=== PATIENT | female | born 1935 | race Caucasian/White ===

== ENCOUNTER 2017-07-29 19:34 | Emergency (ER) | payer OTHER ==
[2017-07-29 19:48] VITALS: RESP 16; TEMP 97.7; O2SAT 96
--- NOTE | 2017-07-29 19:55 | EDPHY ---
H & P Stated Complaint: L HIP PAIN Time Seen by Provider: 07/29/17 19:44 HPI/ROS: CHIEF COMPLAINT: Left hip pain HISTORY OF PRESENT ILLNESS: The patient is a 82-year-old female who fell at the top of the stairs on Friday evening. She landed on her left hip. She was able to walk down the stairs and get her shoe. She is able to walk the rest of that evening and the next day without any difficulty but then Friday had severe pain in her left hip and could not get out of bed. Friday and Friday she was feeling somewhat better but had to sit in the office chair and roll around the house because she could not tolerate bearing weight on her left leg. She has significant pain in her gluteus region with weight-bearing. She also has occasional radiation of the pain down to her knee and lateral aspect of her lower leg. No weakness numbness or paralysis. No bruising or discoloration. REVIEW OF SYSTEMS: Constitutional: denies: chills, fever, recent illness, recent injury EENTM: denies: blurred vision, double vision, nose congestion Respiratory: denies: cough, shortness of breath Cardiac: denies: chest pain, irregular heart rate, lightheadedness, palpitations Gastrointestinal/Abdominal: denies: abdominal pain, diarrhea, nausea, vomiting, blood streaked stools Genitourinary: denies: dysuria, frequency, hematuria, pain Musculoskeletal: See HPI Skin: denies: lesions, rash, jaundice, bruising Neurological: denies: headache, numbness, paresthesia, tingling, dizziness, weakness Hematologic/Lymphatic: denies: blood clots, easy bleeding, easy bruising Immunologic/allergic: denies: HIV/AIDS, transplant EXAM: GENERAL: Well-appearing, well-nourished and in no acute distress. HEAD: Atraumatic, normocephalic. EYES: Pupils equal round and reactive to light, extraocular movements intact, sclera anicteric, conjunctiva are normal. ENT: TMs normal, nares patent, oropharynx clear without exudates. Moist mucous membranes. NECK: Normal range of motion, supple without lymphadenopathy or JVD. LUNGS: Breath sounds clear to auscultation bilaterally and equal. No wheezes rales or rhonchi. HEART: Regular rate and rhythm without murmurs, rubs or gallops. ABDOMEN: Soft, nontender, normoactive bowel sounds. No guarding, no rebound. No masses appreciated. BACK: No CVA tenderness, no spinal tenderness, step-offs or deformities EXTREMITIES: No tenderness, pain with weight-bearing on left leg, location of pain is in her left gluteus region. No pain in her and spine are low back or coccyx. No pain with range of motion of the hip. Normal pulses and sensation distally. NEUROLOGICAL: Cranial nerves II through XII grossly intact. Normal speech, normal gait. 5/5 strength, normal movement in all extremities, normal sensation PSYCH: Normal mood, normal affect. SKIN: Warm, dry, normal turgor, no visible rashes or lesions. Source: Patient Exam Limitations: No limitations - Personal History Current Tetanus/Diphtheria Vaccine: Unsure Current Tetanus Diphtheria and Acellular Pertussis (TDAP): Unsure - Medical/Surgical History Hx Asthma: No Hx Chronic Respiratory Disease: No Hx Diabetes: No Hx Cardiac Disease: No Hx Renal Disease: No Hx Cirrhosis: No Hx Alcoholism: No Hx HIV/AIDS: No Hx Splenectomy or Spleen Trauma: No Other PMH: Allergic rhinorrhea, otherwise denies. Had right hip surgery following trauma. L ANKLE SX/S/P FALL - Family History Significant Family History: No pertinent family hx - Social History Smoking Status: Former smoker Alcohol Use: Sober Drug Use: None Constitutional: Initial Vital Signs Temperature (C) 36.5 C 07/29/17 19:46 Heart Rate 79 07/29/17 19:46 Respiratory Rate 16 07/29/17 19:46 Blood Pressure 154/104 H 07/29/17 19:46 O2 Sat (%) 96 07/29/17 19:46 O2 Delivery Mode Room Air Allergies/Adverse Reactions: No Known Allergies Allergy (Verified 07/29/17 21:20) Medical Decision Making - Diagnostics Imaging Results: Imaging Impressions Hip X-Ray 07/29/17 19:52 Impression: 1. Small avulsion from the superior surface of the left greater trochanter, age indeterminate. 2. Posttraumatic deformity of the left parasymphyseal pubic bone. 3. Prior ORIF proximal right femoral fracture. Imaging: Discussed imaging studies w/ trench digger helper Radiologist ED Course/Re-evaluation: We discussed the fracture seen on x-ray. I discussed the case with Dr. Sy's PA who agrees that this fits the clinical picture. She suggests rest and mobility as tolerated and follow up with Dr. Sy early next week. The patient and her daughter agree with this plan. We discussed indications for returning. I discussed the case with Dr. Holly. The humerus avulsion fracture is insertion site for the gluteus muscles which makes sense why her gluteus hurting. Differential Diagnosis: Partial list of the Differential diagnosis considered include but were not limited to; contusion, pelvic fracture, hip fracture and although unlikely based on the history and physical exam, I also considered dislocation, vascular injury, nerve injury, low back injury. I discussed these differential diagnoses and the plan with the patient as well as the usual and expected course. The patient understands that the diagnosis is provisional and that in medicine we are not always correct and that further workup is often warranted. Usual and customary warnings were given. All of the patient's questions were answered. The patient was instructed to return to the emergency department should the symptoms at all worsen or return, otherwise to followup with the physician as we discussed. Departure - Departure Disposition: Home, Routine, Self-Care Clinical Impression: Fracture of pubic ramus Qualifiers: Encounter type: initial encounter Fracture type: closed Laterality: left Qualified Code(s): S32.592A - Other specified fracture of left pubis, initial encounter for closed fracture Fracture of greater trochanter of left femur Qualifiers: Encounter type: initial encounter Fracture type: closed Fracture alignment: nondisplaced Qualified Code(s): S72.115A - Nondisplaced fracture of greater trochanter of left femur, initial encounter for closed fracture Condition: Good Instructions: Avulsion Fracture (ED) Referrals: Regi Skelton MD [Primary Care Provider] - As per Instructions Wellington Sy MD [Medical Doctor] - As per Instructions
[2017-07-29 21:15] VITALS: BP 135/62; PULSE 81
== END 2017-07-29 21:00 | disposition home or self-care (01) ==
LOC: CED 19:34
DX: S72.115A Nondisplaced fracture of greater trochanter of left femur, initial encounter for closed fracture (principal); S32.592A Other specified fracture of left pubis, initial encounter for closed fracture; Z87.891 Personal history of nicotine dependence; W10.8XXA Fall (on) (from) other stairs and steps, initial encounter
CPT/HCPCS: 73502-PO

== ENCOUNTER 2018-07-21 08:52 | Emergency (ER) | payer OTHER ==
--- NOTE | 2018-07-21 09:56 | EDPHY ---
H & P Stated Complaint: 18 Time Seen by Provider: 07/21/18 09:14 HPI/ROS: Chief Complaint: Back pain HPI: 82-year-old woman been having worsening back pain over the last 6 days after having a mechanical slip and fall in the shower. Patient states she lost her footing slid down on for buttocks 6 days ago. She did not hit her head. No loss of conscious. She has been having mid to lower back pain since that time. He has been getting progressively worse over the last week. She has been taking ibuprofen 400 mg twice a day with some relief but the pain comes back. She has not been taking any medications. No new numbness or weakness. She has been ambulating with some discomfort. She has a walker but has not been using it. No urinary urgency or frequency. No fevers or chills. No chest pain. No nausea or vomiting. ROS: 10 systems were reviewed and were negative except those elements noted in the HPI. PMH: Denies Social History: No smoking, no alcohol, no recreational drug use Family History: non-contributory Physical Exam: Gen: Awake, Alert, No Distress HEENT: Nose: no rhinorrhea Eyes: PERRLA, EOMI Mouth: Moist mucosa Neck: Supple, no JVD Chest: nontender, lungs clear to auscultation Heart: S1, S2 normal, no murmur Abd: Soft, non-tender, no guarding Back: no CVA tenderness, she has tenderness in the lower thoracic and upper lumbar region. No step-offs. No bilateral paraspinal tenderness. Ext: no edema, non-tender Skin: no rash Neuro: CN II-XII intact, Sensation grossly intact, Strength 5/5 in bilateral upper and lower extremities, normal deep tendon reflexes. Normal dorsiflexion and plantar flexion. Sensations intact. - Personal History Current Tetanus Diphtheria and Acellular Pertussis (TDAP): Yes - Medical/Surgical History Hx Asthma: No Hx Chronic Respiratory Disease: No Hx Diabetes: No Hx Cardiac Disease: No Hx Renal Disease: No Hx Cirrhosis: No Hx Alcoholism: No Hx HIV/AIDS: No Hx Splenectomy or Spleen Trauma: No Other PMH: Allergic rhinorrhea, otherwise denies. Had right hip surgery following trauma. L ANKLE SX/S/P FALL - Social History Smoking Status: Former smoker Constitutional: Initial Vital Signs Temperature (C) 36.4 C 07/21/18 09:18 Heart Rate 72 07/21/18 09:18 Respiratory Rate 18 07/21/18 09:18 Blood Pressure 172/88 H 07/21/18 09:18 O2 Sat (%) 96 07/21/18 09:18 O2 Delivery Mode Room Air Allergies/Adverse Reactions: No Known Allergies Allergy (Verified 07/21/18 09:14) Home Medications: Medication Instructions Recorded Cephalexin [Keflex (*)] 500 mg PO Q6H #20 cap 07/21/18 Medical Decision Making - Diagnostics Imaging Results: Imaging Impressions Lumbar Spine X-Ray 07/21/18 09:38 Impression: Osteoporosis with mild T11 and T12 compressions of unknown age. If it is clinically important to first line production supervisor the age of these fractures, then recommend MRI without contrast to look for bone marrow edema. This may be important if the patient is a candidate for kyphoplasty. If the patient is a candidate for kyphoplasty, then recommend consultation with interventional radiology. This patient also benefit from a DEXA scan and bone building pharmacologic intervention. 2. Lumbar Spine, 3 views History: Pain post fall 6 days ago Findings: The bones are osteoporotic. There is severe degenerative narrowing with vacuum phenomenon of the L4-L5 disk space. No lumbar compression abnormalities are identified. Lumbar alignment is anatomic. There is dense atherosclerotic calcification of the normal sized abdominal aorta. Impression: Nothing acute identified in the lumbar spine. Please see the thoracic spine report above. Thoracic Spine X-Ray 07/21/18 09:38 Impression: Osteoporosis with mild T11 and T12 compressions of unknown age. If it is clinically important to first line production supervisor the age of these fractures, then recommend MRI without contrast to look for bone marrow edema. This may be important if the patient is a candidate for kyphoplasty. If the patient is a candidate for kyphoplasty, then recommend consultation with interventional radiology. This patient also benefit from a DEXA scan and bone building pharmacologic intervention. 2. Lumbar Spine, 3 views History: Pain post fall 6 days ago Findings: The bones are osteoporotic. There is severe degenerative narrowing with vacuum phenomenon of the L4-L5 disk space. No lumbar compression abnormalities are identified. Lumbar alignment is anatomic. There is dense atherosclerotic calcification of the normal sized abdominal aorta. Impression: Nothing acute identified in the lumbar spine. Please see the thoracic spine report above. - Data Points Medications Given: Discontinued Medications Acetaminophen (Tylenol) 1,000 mg PO EDNOW ONE Stop: 07/21/18 10:30 Last Admin: 07/21/18 10:36 Dose: 1,000 mg Point of Care Test Results: Urine Dip Collection Date 07/21/18 Collection Time 11:00 Specific Dixon (1.002-1.030) 1.020 PH (5.0-7.5) 7.0 Leukocytes (Negative) 1+ Nitrites (Negative) Positive Protein (Negative) Negative Glucose (Negative) Negative Ketones (Negative) Negative Urobilnogen (0.2-1.0 EU) 4.0 Bilirubin (Negative) Negative Blood (Negative) 2+ Departure - Departure Disposition: Home, Routine, Self-Care Clinical Impression: Back pain, Thoracic compression fracture, UTI (urinary tract infection) Condition: Good Instructions: Back Pain (ED), Lower Back Exercises (ED), Vertebral Compression Fracture (ED), Urinary Tract Infection in Women (ED) Additional Instructions: Take ibuprofen, 600 mg, 3 times a day. You may also take acetaminophen, 1000 mg every 6 hours. You may replace a Lidoderm patch every 24 hr, these are available over-the- counter. Apply ice for 15 minutes of every hour while awake. Make sure to remain active. Did do not lay in bed or sit in a chair for long periods. Avoid heavy lifting or bending at work until cleared by your physician. Please see the attached back exercise instructions. Follow up with on site services specialist in 4-5 days for further evaluation Follow up with your primary care physician in 2-3 days for further evaluation. Referrals: Regi Skelton MD [Primary Care Provider] - As per Instructions Gurjit Aaron MD [Medical Doctor] - As per Instructions Prescriptions: Cephalexin [Keflex (*)] 500 mg PO Q6H #20 cap
[2018-07-21] MEDS ORDERED: ACETAMINOPHEN 500 MG TAB PO ONE (10:29)
[2018-07-21] MEDS ORDERED: LIDOCAINE 4%/MENTHOL 1% PATCH TD ONE ×2 (11:38→11:40)
[2018-07-21 11:47] VITALS: BP 142/62
[2018-07-21] MEDS ORDERED: PATCH REMOVAL 1 EA PATCH TD SCH (21:00)
== END 2018-07-21 12:00 | disposition home or self-care (01) ==
LOC: CED 08:52
DX: M48.54XA Collapsed vertebra, not elsewhere classified, thoracic region, initial encounter for fracture (principal); N39.0 Urinary tract infection, site not specified; Z87.891 Personal history of nicotine dependence
CPT/HCPCS: 72070-PO; 72100-PO